=== PATIENT | male | born 1980 | race Caucasian/White ===

== ENCOUNTER 2019-07-10 11:47 | Emergency (ER) | payer OTHER, SELFPAY ==
--- NOTE | ~2019-07-10 | CT_ITS ---
EXAMINATION: CT brain wo con EXAM DATE: 07/10/2019 15:07 INDICATION: Sedated, sepsis. Temporal change in awareness. TECHNIQUE: Spiral CT of the head was performed without contrast. Axial, coronal and sagittal images were reviewed. The dose-length product (DLP) for this examination was 605.33 mGy-cm. The exposure w as tailored according to patient size, and iterative reconstruction (ASIR) was used as additional dos e reduction technique. There is no prior study for comparison. FINDINGS: There is no acute intraparenchymal hemorrhage. No evidence of intraparenchymal brain mass lesion. No evidence of acute infarction. There is no mass effect or midline shift. The ventricles are normal in size. There are no extra-axial collections. There are no acute calvarial fractures. T he orbits are unremarkable. Soft tissue is unremarkable. The visualized sinuses and mastoid air neri ls are well aerated. IMPRESSION: 1. No acute intracranial findings. Reviewed, dictated and finalized at location A. E SHOOTER
--- NOTE | ~2019-07-10 | CT_ITS ---
EXAMINATION: CT chest abdomen pelvis wo con EXAM DATE: 07/10/2019 15:08 INDICATION: Sepsis. Temporary change in awareness. TECHNIQUE: Spiral CT of the chest, abdomen and pelvis was performed without contrast. Axial, vasquez l and sagittal images were reviewed. Coronal maximum intensity pixel images of chest reviewed. The dose-length product (DLP) for this examination was 296.47 mGy-cm. The exposure was tailored accordin g to patient size (auto mA exposure control), and iterative reconstruction (ASIR) was used as additio nal dose reduction technique. Correlation is made to CT abdomen 01/14/2017. FINDINGS: CHEST: Some patchy peripheral bilateral airspace disease probably acute infection, pneumonia. There are no pleural or pericardial effusions. Tracheobronchial tree is patent. There is no mediastina l, hilar or axillary lymphadenopathy. There is no pneumothorax. Heart normal in size. No eviden ce of coronary arterial calcification. Lungs are hyperinflated. The interventricular septum is perce ptible, suggesting patient is anemic. ABDOMEN PELVIS: Patient is under weight, only small amount of fat, but there is evidence of fat stran ding, edema throughout. Sensitivity for acute intra-abdominal process is limited due to this and lack of contrast. There is left liver lobe hypodensity measuring up to 3.8 cm, another smaller one measur ing 1.5 cm. These were present on previous examination, difficult to see on these noncontrast exams. Spleen, adrenal glands, pancreas grossly unremarkable. Gallbladder is unremarkable. No biliary obs truction. There is no nephrolithiasis or hydronephrosis. The prostate is unremarkable. There is a Salcedo catheter in position. The bladder is moderately distended, Salcedo catheter balloon may be clampe d. There is no retroperitoneal or pelvic lymphadenopathy. The appendix is not positively visualized. There is no pericecal inflammatory change to suggest appe ndicitis. The stomach and small bowel are unremarkable. There is expected amount of colonic stool. No free intraperitoneal gas. There are no osteoblastic or osteolytic lesions identified. IMPRESSION: 1. Some scattered regions of bilateral peripheral airspace disease likely acute infection, pneumonia . 2. Limited abdominal evaluation from lack of body fat, diffuse edema within fat (? Hypoproteinemic s canela. Probable anemia. 3. Salcedo catheter. Moderately distended bladder. Is Salcedo clamped? 4. Hyperinflation. Reviewed, dictated and finalized at location A. ING UP WORKER IMPRESSION: 1. Some scattered regions of bilateral peripheral airspace disease likely acut e infection, pneumonia. 2. Limited abdominal evaluation from lack of body fat, diffuse edema within fa t (? Hypoproteinemic state. Probable anemia. 3. Salcedo catheter. Moderately distended bladder. Is Salcedo clamped? 4. Hyperinflation.
[2019-07-10 11:50] VITALS: BP 113/88; PULSE 64; RESP 24; TEMP 36; O2SAT 98
[2019-07-10] MEDS: SODIUM CHLORIDE 0.9% IV 1,000 ML 999 ML IV CONT (12:03)
--- NOTE | 2019-07-10 12:06 | ECG_ITS ---
Measurements Intervals [place] Rate: 46 P: 263 SC: 179 QRS: 87 QRSD: 170 T: 74 QT: 557 QTc: 492 Interpretive Statements SINUS OR ECTOPIC ATRIAL BRADYCARDIA WITH FIRST DEGREE AV BLOCK INTRAVENTRICULAR CONDUCTION DELAY BORDERLINE R WAVE PROGRESSION, ANTERIOR LEADS PEAKED T WAVES- CONSIDER HYPERKALEMIA OR ISCHEMIA BASELINE ARTIFACT- I, II, III, AVR, AVL, AVF, V1-V2, V4-V6 ABNORMAL ECG Electronically Signed On 07-10-2019 13:07:15 [employer] by Uzair Steel D.O.
--- NOTE | 2019-07-10 12:17 | ED.AMS ---
HPI - Altered Mental Status General Chief Complaint: Altered Mental Status Stated Complaint: ambulance Time Seen by Provider: 07/10/19 11:50 Source: EMS Limitations: clinical condition History of Present Illness HPI narrative: Juan is a 38-year-old male patient. He is brought to the emergency room by ambulance. He apparently has been living with a family, apparently not his family. There is no history obtainable from the patient himself. EMS were called because apparently the patient was confused. The only history her EMS with a obtain was that apparently patient has a history of Crohn's disease and diabetes mellitus. He has had his left BK amputation. Timing of this is unknown. There are some scabs on the stump which appear to be old. No other history is obtainable. It is not known with the the patient has been vomiting or has had any diarrhea or not. He thrashes around on the bed and appears to be very weak and dehydrated duration of symptoms is also unknown. It is unknown whether he had any history of fall or not. MD complaint: altered mental status, decreased responsiveness and weakness Onset (ago): unknown Timing confirmed by: other ( timing unknown) Severity: severe Consistency of symptoms: unknown Associated symptoms: other ( it is not known what kind of symptoms the patient has had prior to arrival to the emergency room.) Treatments prior to arrival: other ( None) Related Data Home Medications Medication Instructions Recorded Confirmed Unable to Obtain Home Medications 07/10/19 07/10/19 Allergies Allergy/AdvReac Type Severity Reaction Status Date / Time Unable to Assess Allergy Verified 07/10/19 16:47 Review of Systems Review of Systems: Narrative: review of systems is not possible because of patient's altered mental status. There is no friends or family with the patient. He just thrashes around and does not talk. He does moan and groan. ROS unobtainable: unobtainable due to mental condition PMF Past Medical History Medical History (Updated 07/10/19 @ 19:01 by Stan Carter MD) Crohn's disease Diabetes mellitus Surgical History Surgical History (Updated 07/10/19 @ 12:28 by Stan Carter MD) S/P BKA (below knee amputation) unilateral Social History Social History (Updated 07/10/19 @ 12:28 by Stan Carter MD) Social History: unknown Additional smoking assessment comments: smoking status unknown Alcohol use details: unknown Substance use: unknown Exam Narrative: Exam Narrative: very thin built patient who moans and groans and thrashes around. He appears to be chronically ill. Const: General: confusion; No diaphoretic Nutritional Appearance: thin Limitations: altered mental status and other limitations ( Appears to be malnourished and cachectic) HENMT: Ears: TM abnormal ( both TMs obscured from wax.) Mouth: Yes dry mucous membranes Eyes: Pupils: Equal, round and reactive pupils present EOM: EOMs intact bilaterally Neck: Neck: no lymphadenopathy Chest: Chest palpation & inspection: normal inspection of the chest Resp: Auscultation: diminished lung sounds Other: Breath sounds are diminished at both bases. A few rhonchi are heard at the right base posteriorly. Cardio: Rate: tachycardic Rhythm: regular rhythm GI: GI Palp: Yes Soft to palpation Other: The abdomen is scaphoid. No surgical scars are noted. Bowel sounds can be heard though they are somewhat hypoactive. Liver and spleen do not appear to be enlarged. No palpable masses noted. Difficult to assess for tenderness because of his altered mental status. : Other: Difficult to assess for CVA tenderness due to his altered mental status. Urinary Catheter: Urinary Catheter: other ( A Salcedo catheter was inserted. A very small amount of clear urine was obtained PE. This will be sent to the lab.) Back/Spine/Pelvis: Other: Difficult to assess for CVA tenderness loreto
[2019-07-10] MEDS: LORAZEPAM INJ 2 MG/ML VIAL 1 MG IV PUSH (12:30)
[2019-07-10 12:56] LABS: Hematocrit 30.3 % (40.0-54.0); Hemoglobin 8.6 g/dL (14.0-18.0); Mean Corpuscular HGB Conc 28.4 g/dL (32.0-36.0); Mean Corpuscular Volume 98.7 fL (78.0-102.0); Mean Platelet Volume 10.2 fl (8.7-11.0); Platelet Count Result 407 K/mm3 (150-420); Red Blood Count 3.07 M/mm3 (4.70-6.10); Red Cell Distribution Width 15.6 % (11.6-14.4)
[2019-07-10 12:57] LABS: Add Urine Microscopic? YES; Appearance Urine Clear (Clear); Bilirubin Urine Negative (Negative); Blood Urine 1+ (Negative); Color Urine Yellow (Yellow); Glucose Urine UA 3+ (Negative); Ketones Urine 1+ (Negative); Leukocyte Esterase Ur Negative LEU/UL (Negative); Nitrate Urine Negative (Negative); Protein Urine Trace (Negative); Urobilinogen Urine 0.2 mg/dL (0.2-1.0); pH Urine 5.5 (5.0-8.0)
[2019-07-10 13:06] LABS: Amphetamine Screen Urine Negative (Negative); Barbiturate Screen Urine Negative (Negative); Benzodiazepines Screen Urine Negative (Negative); Cannabinoid Screen Urine Positive (Negative); Cocaine Screen Urine Negative (Negative); Methadone Screen Urine Negative (Negative); Opiate Screen Urine Negative (Negative); Phencyclidine Screen Urine Negative (Negative); White Blood Count 25.3 K/mm3 (4.8-10.8)
[2019-07-10 13:07] LABS: Bacteria Urine 1+ /hpf; Mucus Urine Few /lpf; Squamous Epithelial Cell Urine Few /hpf (Few); WBC Urine 0-3 /hpf (0-3)
[2019-07-10 13:15] LABS: Lactic Acid 2.5 mmol/L (0.4-2.0)
[2019-07-10 13:20] LABS: Band Neutrophils Percent 9 % (0-6); Neutrophils Absolute Manual 20.74 K/mm3 (1.3-6.7); Neutrophils Percent Manual 73 % (46-73); Total Cells Counted 100
[2019-07-10 13:21] LABS: Basophils Percent Manual 0 % (0-1); Eosinophils Percent Manual 0 % (1-6); Lymphocytes Absolute Manual 2.02 K/mm3 (1.1-4.5); Lymphocytes Percent Manual 8 % (18-44); Metamyelocytes Percent 3 %; Monocytes Absolute Manual 1.77 K/mm3 (0.1-0.90); Monocytes Percent Manual 7 % (3-9); Platelet Estimate Adequate (Adequate)
[2019-07-10 13:22] LABS: BNP 75.8 pg/mL (0-100)
[2019-07-10 13:27] LABS: Alanine Aminotransferase 42 U/L (16-63); Albumin Level 1.9 g/dL (3.4-5.0); Alkaline Phosphatase 170 U/L (46-116); Aspartate Amino Transferase 62 U/L (15-37); Bilirubin,Total 0.4 mg/dL (0.00-1.00); Blood Urea Nitrogen 105 mg/dL (7-18); CRP 3.7 mg/dL (0.0-0.9); Chloride 83 mmol/L (98-108); Creatine Kinase 405 U/L (39-308); Estimated Glomerular Filt Rate 20; Magnesium 3.3 mg/dL (1.8-2.4); Salicylate 8.1 mg/dL (2.8-20.0); Total Protein 6.4 g/dL (6.4-8.2)
[2019-07-10 13:30] LABS: Influenza Control Valid (Valid)
[2019-07-10 13:39] LABS: Anion Gap 36.70001 mmol/L (7-16); Carbon Dioxide < 5 mmol/L (21-32); Potassium 7.7 mmol/L (3.5-5.1); Sodium 117 mmol/L (136-145)
[2019-07-10 13:40] LABS: Glucose > 800 mg/dL (70-99); Osmolality Calculated 316 mOsm/kg (285-295); Troponin I < 0.02 ng/mL (0.00-0.056)
[2019-07-10 13:41] LABS: Amylase 839 U/L (25-115)
[2019-07-10 13:42] LABS: Ethanol < 3 mg/dL (0-6)
[2019-07-10 13:48] LABS: Lipase 9298 U/L (73-393)
[2019-07-10] MEDS: SODIUM POLYSTYRENE SULFONONATE 15 GM/60 ML BTL 30 GM (15:05)
[2019-07-10 15:11] LABS: INR 1.2; Partial Thromboplastin Time 51.3 SEC (22.3-31.6); Prothrombin Time 11.9 Seconds (9.64-11.0)
[2019-07-10 15:12] LABS: Acetaminophen 1 ug/mL (10-30); Thyroid Stimulating Hormone 3.42 uIU/mL (0.36-3.74)
[2019-07-10] MEDS: INSULIN HUMAN REGULAR (*BKC) 100 UNITS in SODIUM CHLORIDE 0.9% IV 99 ML IV CONT (15:12)
[2019-07-10 15:27] LABS: Erythrocyte Sedimentation Rate 40 mm/hr (0-15)
[2019-07-10 15:32] LABS: PCO2 ABG 18.4 mmHg (35-45); pH ABG 6.78 (7.35-7.45)
[2019-07-10 15:33] LABS: Base Excess ABG -30.7 mmol/L (0-2); HCO3 ABG 2.7 mmol/L (23-29); Oxygen Saturation ABG 87.4 % (95-97); PO2 ABG 83.7 mmHg (80-90); Total Hemoglobin 9.6 g/dL
[2019-07-10 15:34] LABS: Acetone Moderate (Negative)
[2019-07-10 15:34] LABS: Device NASAL CANNULA; Modified Allen's Test Pass; Site Drawn RIGHT RADIAL
[2019-07-10] MEDS: LACTATED RINGERS 1,000 ML 999 ML ×2 (15:35→15:45)
[2019-07-10] MEDS: LACTATED RINGERS 1,000 ML 999 ML IV CONT ×2 (15:35→15:45)
[2019-07-10 15:43] LABS: Glucose > 800 mg/dL (70-99)
[2019-07-10] MEDS: SODIUM BICARBONATE 8.4% 50 MEQ in DEXTROSE 5% 1,000 ML 1,000 ML IV CONT (16:05)
[2019-07-10 16:20] VITALS: PULSE 56; RESP 24
[2019-07-10] MEDS: IPRATROPIUM 0.5 MG/ALBUTEROL SULFATE 2.5 MG AMPUL.NEB 3 ML INHALATION (16:28)
--- NOTE | 2019-07-10 16:29 | PCDIET ---
CENTRAL LINE TO Ratna GARCIA INSERTED PER DR. SHUKLA. PER PROTOCOL. @[id number]
[2019-07-10 16:30] VITALS: PULSE 58; RESP 24
[2019-07-10 16:33] LABS: BNP 53.7 pg/mL (0-100)
[2019-07-10 16:36] LABS: Hematocrit 23.4 % (40.0-54.0); Mean Corpuscular HGB Conc 29.9 g/dL (32.0-36.0); Mean Corpuscular Hemoglobin 28.2 pg (27.0-31.0); Mean Corpuscular Volume 94.4 fL (78.0-102.0); Mean Platelet Volume 9.6 fl (8.7-11.0); Platelet Count Result 254 K/mm3 (150-420); Red Blood Count 2.48 M/mm3 (4.70-6.10); White Blood Count 17.2 K/mm3 (4.8-10.8)
--- NOTE | 2019-07-10 16:37 | PC.NURSE ---
1200 PT. RESTLESS, KICKING RESTRAINTS TO EXTREMITIES
[2019-07-10 16:47] LABS: Alanine Aminotransferase 33 U/L (16-63); Albumin Level 1.4 g/dL (3.4-5.0); Alkaline Phosphatase 130 U/L (46-116); Anion Gap 32.9 mmol/L (7-16); Aspartate Amino Transferase 56 U/L (15-37); Bilirubin,Total 0.3 mg/dL (0.00-1.00); Blood Urea Nitrogen 101 mg/dL (7-18); Calcium 7.1 mg/dL (8.5-10.1); Carbon Dioxide 7 mmol/L (21-32); Chloride 93 mmol/L (98-108); Estimated Glomerular Filt Rate 22; Potassium 4.9 mmol/L (3.5-5.1); Sodium 128 mmol/L (136-145); Total Protein 4.8 g/dL (6.4-8.2)
[2019-07-10 17:05] LABS: Lactic Acid 2.5 mmol/L (0.4-2.0)
[2019-07-10 17:07] LABS: Glucose > 800 mg/dL (70-99); Osmolality Calculated 336 mOsm/kg (285-295)
[2019-07-10 17:28] LABS: Band Neutrophils Percent 9 % (0-6); Basophils Percent Manual 0 % (0-1); Eosinophils Percent Manual 0 % (1-6); Lymphocytes Absolute Manual 1.54 K/mm3 (1.1-4.5); Lymphocytes Percent Manual 9 % (18-44); Metamyelocytes Percent 1 %; Monocytes Percent Manual 0 % (3-9); Myelocytes Percent 1 %; Neutrophils Percent Manual 80 % (46-73); Platelet Estimate Adequate (Adequate); Total Cells Counted 100
--- NOTE | 2019-07-10 17:48 | PC.NURSE ---
1203 IV 1000 N. SALINE ADDED ON TO PATENT S.ED INFUSSING W.O TO GRAVITY. ATIVAN [address] SCAN PT. CONT TO BE RESTLESS. SIDDIQI DRAINIING SM AMT OF CLEAR URINE. [address] PER STREACHER. ACC, BY YAJAIRA. DOUGLASER. NOW. 1329 RETURNED TO ROOM FROM [place]. . INSULIN 20 UNITS IVP PT. RESTING CONT TO GRAB AT WRITTER AT TIMES. LBK STUMP CLEANSED WITH H202 AND BETADINE GAUZE DRESSING APPLYED. 1412 DR. SHUKLA INSERTS CENTRAL LINE TO R. GROIN. . NO CHANGE IN PT. O2 CHANGED TO 12 /L/ NRB SAT 89 % RESP 28 . EXTREMITIES COLD. PT. KICKS BLANKET OFF FREQUENTLY. 1445 [facility] CALLED TO REPEAT GLUCOSE. 1512 INSULIN 10 UNITS IVP PT UNABLE TO RETAIN KAEXALATE 30 GM PER RECTUM HAS POOR MUSCLE TONE 1600 NA BICARB. 2 AMPS IVP PER CENTRAL LINE AND NA BICARB. DRIP INITATED TO INFUSS AT 40 ML/HR/PUMP/ 1645 DOPAMINE DRIP INITATED @ 2.5 MG/HR./PUMP. PER CENTRAL LINE. GLUCOSE CHEAKED MORE THEN 500 LAB CALL FOR ADD. LABS. ORDERED SIDDIQI DRAINING ALIX URINE APPROX 600ML NOED IN SIDDIQI BAG. PT. REMAINS ON O2 15 L/ NRB SAT 98 % 1712 DOPAMINE INCREASED TO 5 MG./HR/PUMP
[2019-07-10] MEDS: SODIUM BICARBONATE 8.4% 100 MEQ in DEXTROSE 5% 1,000 ML 1,000 ML 50 MEQ IV CONT (18:29)
[2019-07-10] MEDS: DOPamine 400 MG/D5W 250 ML 400 MG/250 ML BAG IV CONT (18:31)
[2019-07-10 18:39] VITALS: BP 108/58; PULSE 96; RESP 24; O2SAT 89
--- NOTE | 2019-07-10 18:41 | PC.NURSE ---
1730 PT. RESTILNG . PT. MORE ALERT FAMILY AT BED SIDE. PT. CALMER. . 1800 AWAITING FOR AMBULANCE TO TRAMSPORT PT. . IV CONT TO INFUSS ORDERED.. MONITOR NSR RATE 84
--- NOTE | 2019-07-10 18:44 | PC.NURSE ---
1845 Call back from [facility], will have crew available for transfer. AwaITING [facility] for pt. transfer.
--- NOTE | 2019-07-10 18:46 | PC.NURSE ---
1800 REPORT GIVEN TO ALEJANDRO AT [facility].
[2019-07-10] MEDS: INSULIN HUMAN REGULAR (*BKC) 100 UNITS/ML IV PUSH (19:04)
[2019-07-10 19:07] VITALS: BP 102/45; PULSE 96; RESP 24; O2SAT 92
[2019-07-10] MEDS: LORAZEPAM INJ 2 MG/ML VIAL 0.5 MG IV PUSH (19:20)
[2019-07-10] MEDS: LACTATED RINGERS 1,000 ML 150 ML IV CONT (19:21)
--- NOTE | 2019-07-10 19:24 | PC.NURSE ---
Pt. restless, Ativan given as per order, restraints used to Lt. hand to keep pt. from pulling at tubes. Family at bedside, pt. responding and talking to family. Awaiting [facility] for transfer.
--- NOTE | 2019-07-10 19:32 | PC.NURSE ---
VSS Report given to [facility] for transfer c nurse along in route.
--- NOTE | 2019-07-10 21:35 | PC.NURSE ---
Addendum 194 Pt. loaded to EMS stretcher c IV fluids of LR infusing in Rt. groin central line, Also infusing still per order is Dopamine gtt, Insulin gtt and NaBicarb gtt as per orders.
--- NOTE | 2019-07-10 21:41 | PC.NURSE ---
addendum note 1800 Noted pt. in soft restraints upon this RN arrival. Restraints d/c'd at time of transfer c EMS [facility] at 1945.
[2019-07-10 22:45] LABS: Glucose Point of Care > 450 (65-105)
[2019-07-10 22:45] LABS: Glucose Point of Care > 450 (65-105)
[2019-07-10 22:45] LABS: Glucose Point of Care > 450 (65-105)
== END 2019-07-10 19:45 | disposition short-term general hospital (02) ==
PROVIDERS: Emergency Provider Surgery
DX: R41.0 Disorientation, unspecified (principal); E11.11 Type 2 diabetes mellitus with ketoacidosis with coma; N17.9 Acute kidney failure, unspecified; A41.9 Sepsis, unspecified organism; J18.9 Pneumonia, unspecified organism
CPT/HCPCS: 36415; 36556; 36600; 70450; 71250; 74176; 80053; 80307; 81001; 82010; 82150; 82550; 82553; 82805; 82947; 83036; 83605; 83690; 83735; 83880; 84443; 84484; 85025; 85610; 85652; 85730; 86140; 87040; 87070; 87077; 87186; 87205; 87804; 93005; 94640; 96361; 96365; 96366; 96367; 96375; 96376; 99291; A9270; C1751; J1265; J1815; J2060; J2543; J7030; J7070; J7120